=== PATIENT | male | born 1965 | race Caucasian/White ===

== ENCOUNTER 2020-09-01 18:51 | Observation (INO) ==
[2020-09-01 19:18] LABS: Basophils # 0.1 K/mcL (0.0-0.2); Basophils % 0.4 %; Eosinophils # 0.3 K/mcL (0.0-0.6); Eosinophils % 2.5 %; Hematocrit 42.4 % (37.5-50.1); Immature Granulocytes % 0.2 % (0-4); Lymphocytes # 3.8 K/mcL (0.6-4.6); Lymphocytes % 29.7 %; Mean Corpuscular Hemoglobin 32.6 pg (28.0-33.3); Mean Corpuscular Volume 98.6 fL (83.0-100.0); Mean Platelet Volume 10.2 fL (9.4-12.4); Monocytes # 0.8 K/mcL (0.0-1.3); Monocytes % 6.2 %; Neutrophils # 7.9 K/mcL (1.6-8.9); Platelet Count 230 K/mcL (140-400); Red Cell Distribution Width 13.3 % (11.5-14.5); White Blood Count 12.9 K/mcL (4.3-11.1)
[2020-09-01 19:36] LABS: Alanine Aminotransferase 27 Units/L (7-52); Albumin 4.3 g/dL (3.5-5.7); Albumin/Globulin Ratio 1.5 (1.1-2.2); Alkaline Phosphatase 99 Units/L (34-104); Aspartate Amino Transferase 20 Units/L (13-39); BUN/Creatinine Ratio 22 (6-26); Bilirubin,Total 0.2 mg/dL (0.3-1.0); Blood Urea Nitrogen 18 mg/dL (6-20); Calcium 9.6 mg/dL (8.6-10.3); Carbon Dioxide 27 mEq/L (23-29); Chloride 103 mEq/L (98-107); Globulin 2.8 g/dL (2.4-3.5); Glucose 98 mg/dL (70-105); Lipase 27 Units/L (11-82); Osmolality,Calculated 286 (280-300); Sodium 137 mEq/L (136-145); Total Protein 7.1 g/dL (6.4-8.9); eGFR For African Americans > 60 (> 60); eGFR For Non-African Americans > 60 (> 60)
[2020-09-01 20:18] LABS: Troponin I < 0.03 ng/mL (< 0.04)
[2020-09-01] MEDS ORDERED: Isovue-370 500 ML BOTTLE IVP ONE (20:32)
[2020-09-01] MEDS ORDERED: Pantoprazole 40 MG VIAL IVP ONE (21:39)
[2020-09-01] MEDS ORDERED: Nicotine 14 MG PATCH.TD24 TD STA (21:56)
[2020-09-01] MEDS ORDERED: Melatonin 3 MG TABLET PO PRN (23:01)
[2020-09-01] MEDS ORDERED: Naloxone 0.4 MG/ML INJ IVP PRN (23:01)
[2020-09-01] MEDS ORDERED: Ondansetron 4 MG/2 ML VIAL IVP PRN (23:01)
[2020-09-02] MEDS ORDERED: 0.9 % Sodium Chloride 1,000 ML IVC ONE (05:34)
[2020-09-02] MEDS ORDERED: Pantoprazole 40 MG VIAL IVP SCH (06:00)
[2020-09-02] MEDS ORDERED: *HR* Heparin 5,000 UNIT/ML VIAL SQ SCH (06:00)
[2020-09-02 07:10] LABS: Basophils # 0.1 K/mcL (0.0-0.2); Basophils % 0.5 %; Eosinophils # 0.3 K/mcL (0.0-0.6); Eosinophils % 2.4 %; Hematocrit 41.6 % (37.5-50.1); Hemoglobin 13.8 g/dL (12.9-16.9); Immature Granulocytes % 0.2 % (0-4); Lymphocytes # 3.7 K/mcL (0.6-4.6); Lymphocytes % 35.3 %; Mean Corpuscular HGB Conc 33.2 g/dL (31.6-35.5); Mean Corpuscular Volume 96.5 fL (83.0-100.0); Mean Platelet Volume 10.3 fL (9.4-12.4); Monocytes # 0.6 K/mcL (0.0-1.3); Monocytes % 5.8 %; Neutrophils # 5.8 K/mcL (1.6-8.9); Platelet Count 195 K/mcL (140-400); Red Blood Count 4.31 M/mcL (4.19-5.50); Red Cell Distribution Width 13.2 % (11.5-14.5); Segmented Neutrophils % 55.8 %; White Blood Count 10.5 K/mcL (4.3-11.1)
[2020-09-02 07:49] LABS: BUN/Creatinine Ratio 18 (6-26); Blood Urea Nitrogen 15 mg/dL (6-20); Calcium 9.4 mg/dL (8.6-10.3); Carbon Dioxide 26 mEq/L (23-29); Chloride 106 mEq/L (98-107); Glucose 93 mg/dL (70-105); Osmolality,Calculated 287 (280-300); Potassium 3.8 mEq/L (3.5-5.1); Sodium 138 mEq/L (136-145); eGFR For African Americans > 60 (> 60); eGFR For Non-African Americans > 60 (> 60)
[2020-09-02] MEDS ORDERED: Aspirin Enteric Coated 81 MG Tablet PO SCH (09:00)
[2020-09-02 10:22] LABS: Adenovirus Not Detected (Not Detect); Bordetella Pertussis Not Detected (Not Detect); Chlamydophila pneumoniae Not Detected (Not Detect); Coronavirus 229E Not Detected (Not Detect); Coronavirus HKU1 Not Detected (Not Detect); Coronavirus NL63 Not Detected (Not Detect); Coronavirus OC43 Not Detected (Not Detect); Human Metapneumovirus Not Detected (Not Detect); Human Rhinovirus/Enterovirus Not Detected (Not Detect); Influenza A Subtype 2009 H1 Not Detected (Not Detect); Influenza B Not Detected (Not Detect); Mycoplasma pneumoniae Not Detected (Not Detect); Parainfluenza Virus 1 Not Detected (Not Detect); Parainfluenza Virus 2 Not Detected (Not Detect); Parainfluenza Virus 3 Not Detected (Not Detect); Parainfluenza Virus 4 Not Detected (Not Detect); Respiratory Syncytial Virus Not Detected (Not Detect); SARS-CoV-2 Not Detected (Not Detect)
[2020-09-02] MEDS ORDERED: Nitroglycerin 0.4 MG TAB.SUBL SL PRN (10:29)
[2020-09-02] MEDS ORDERED: Isosorbide MONOnitrate (24 HR) 30 MG TAB.ER.24H PO SCH (10:30)
[2020-09-02] MEDS ORDERED: Metoprolol XL (24 HR) Succ 25 MG TAB.ER.24H PO SCH (10:30)
[2020-09-02] MEDS ORDERED: lisinopriL 5 MG TABLET PO SCH (10:45)
[2020-09-02] MEDS ORDERED: *HR* Propofol 200 MG/20 ML VIAL IVP ONE (11:27)
[2020-09-02] MEDS ORDERED: Lidocaine -MPF 2% 2 ML VIAL ONE (11:28)
[2020-09-02 14:43] VITALS: BP 100/52
[2020-09-02] MEDS ORDERED: Perflutren Lipid Microsphere 1.3 ML in 0.9 % Sodium Chloride 8.7 ML IVP PRN (16:10)
[2020-09-02] MEDS ORDERED: Melatonin 3 MG TABLET PO SCH (21:00)
== END 2020-09-02 17:04 | disposition home or self-care (01) ==
LOC: 3BNU 18:51 → EMEROOARM 18:51 → SUATTDRO 21:49 → 3BNU 22:19
PROVIDERS: ADMIT Family Medicine; ATTEND Registered Nurse
PROC: ENDOEBX (2020-09-02 13:30)

== ENCOUNTER 2020-10-27 23:31 | Observation (INO) ==
[2020-10-28 00:43] LABS: Basophils # 0.1 K/mcL (0.0-0.2); Basophils % 0.4 %; Eosinophils # 0.3 K/mcL (0.0-0.6); Eosinophils % 2.9 %; Hematocrit 41.1 % (37.5-50.1); Hemoglobin 13.4 g/dL (12.9-16.9); Immature Granulocytes % 0.3 % (0-4); Lymphocytes # 3.4 K/mcL (0.6-4.6); Lymphocytes % 29.7 %; Mean Corpuscular HGB Conc 32.6 g/dL (31.6-35.5); Mean Corpuscular Hemoglobin 32.3 pg (28.0-33.3); Mean Platelet Volume 10.6 fL (9.4-12.4); Monocytes # 0.9 K/mcL (0.0-1.3); Neutrophils # 6.7 K/mcL (1.6-8.9); Platelet Count 216 K/mcL (140-400); Red Blood Count 4.15 M/mcL (4.19-5.50); Red Cell Distribution Width 12.7 % (11.5-14.5); Segmented Neutrophils % 58.7 %; White Blood Count 11.4 K/mcL (4.3-11.1)
[2020-10-28 00:54] LABS: Prothrombin Time 11.3 Seconds (9.4-12.1)
[2020-10-28 00:59] LABS: Alanine Aminotransferase 20 Units/L (7-52); Albumin 4.3 g/dL (3.5-5.7); Albumin/Globulin Ratio 1.5 (1.1-2.2); Alkaline Phosphatase 94 Units/L (34-104); Aspartate Amino Transferase 17 Units/L (13-39); BUN/Creatinine Ratio 25 (6-26); Bilirubin,Indirect 0.3 mg/dL (0.0-1.0); Bilirubin,Total 0.3 mg/dL (0.3-1.0); Blood Urea Nitrogen 21 mg/dL (6-20); Calcium 9.8 mg/dL (8.6-10.3); Carbon Dioxide 25 mEq/L (23-29); Chloride 104 mEq/L (98-107); Globulin 2.8 g/dL (2.4-3.5); Glucose 107 mg/dL (70-105); Osmolality,Calculated 287 (280-300); Potassium 3.9 mEq/L (3.5-5.1); Sodium 137 mEq/L (136-145); Total Protein 7.1 g/dL (6.4-8.9); eGFR For African Americans > 60 (> 60); eGFR For Non-African Americans > 60 (> 60)
[2020-10-28] MEDS ORDERED: Isovue-370 500 ML BOTTLE IVP ONE (01:35)
[2020-10-28] MEDS ORDERED: Ondansetron 4 MG/2 ML VIAL IVP PRN (05:01)
[2020-10-28] MEDS ORDERED: Acetaminophen 325 MG TABLET PO PRN (05:01)
[2020-10-28] MEDS ORDERED: Naloxone 0.4 MG/ML INJ IVP PRN (05:01)
[2020-10-28] MEDS ORDERED: Nitroglycerin 0.4 MG TAB.SUBL SL PRN (05:02)
[2020-10-28] MEDS ORDERED: Nicotine 14 MG PATCH.TD24 TD SCH (05:30)
[2020-10-28] MEDS: Aspirin Enteric Coated 81 MG Tablet PO SCH (08:11)
[2020-10-28] MEDS: Amoxicillin 500 MG CAPSULE PO SCH (08:11)
[2020-10-28] MEDS: Isosorbide MONOnitrate (24 HR) 30 MG TAB.ER.24H PO SCH (08:11)
[2020-10-28] MEDS: Metoprolol XL (24 HR) Succ 25 MG TAB.ER.24H PO SCH (08:11)
[2020-10-28] MEDS: lisinopriL 5 MG TABLET PO SCH (08:11)
[2020-10-28 10:07] LABS: Hemoglobin 14.1 g/dL (12.9-16.9)
[2020-10-28] MEDS ORDERED: Melatonin 3 MG TABLET PO SCH (21:00)
[2020-10-29] MEDS: Amoxicillin 500 MG CAPSULE PO SCH (00:29)
[2020-10-29 05:22] LABS: Basophils # 0.1 K/mcL (0.0-0.2); Basophils % 0.6 %; Eosinophils # 0.4 K/mcL (0.0-0.6); Eosinophils % 3.9 %; Hematocrit 43.8 % (37.5-50.1); Hemoglobin 14.2 g/dL (12.9-16.9); Immature Granulocytes % 0.3 % (0-4); Lymphocytes # 3.4 K/mcL (0.6-4.6); Lymphocytes % 31.5 %; Mean Corpuscular HGB Conc 32.4 g/dL (31.6-35.5); Mean Corpuscular Hemoglobin 31.7 pg (28.0-33.3); Mean Corpuscular Volume 97.8 fL (83.0-100.0); Mean Platelet Volume 10.5 fL (9.4-12.4); Monocytes # 0.8 K/mcL (0.0-1.3); Monocytes % 7.3 %; Neutrophils # 6.1 K/mcL (1.6-8.9); Platelet Count 217 K/mcL (140-400); Red Blood Count 4.48 M/mcL (4.19-5.50); Segmented Neutrophils % 56.4 %; White Blood Count 10.7 K/mcL (4.3-11.1)
[2020-10-29 05:30] LABS: INR 1.1; Prothrombin Time 12.4 Seconds (9.4-12.1)
[2020-10-29 05:44] LABS: BUN/Creatinine Ratio 24 (6-26); Blood Urea Nitrogen 19 mg/dL (6-20); Calcium 9.5 mg/dL (8.6-10.3); Carbon Dioxide 22 mEq/L (23-29); Chloride 106 mEq/L (98-107); Glucose 98 mg/dL (70-105); Osmolality,Calculated 284 (280-300); Potassium 4.1 mEq/L (3.5-5.1); Sodium 136 mEq/L (136-145); eGFR For African Americans > 60 (> 60); eGFR For Non-African Americans > 60 (> 60)
[2020-10-29 06:46] VITALS: BP 121/76
[2020-10-29] MEDS: Metoprolol XL (24 HR) Succ 25 MG TAB.ER.24H PO SCH (09:07)
[2020-10-29] MEDS: Aspirin Enteric Coated 81 MG Tablet PO SCH (09:07)
[2020-10-29] MEDS: Isosorbide MONOnitrate (24 HR) 30 MG TAB.ER.24H PO SCH (09:07)
[2020-10-29] MEDS: lisinopriL 5 MG TABLET PO SCH (09:08)
== END 2020-10-29 09:32 | disposition home or self-care (01) ==
LOC: EMEROOARM 23:31 → 3NENU 23:31 → SUATTDRO 10-28 03:48 → 3NENU 10-28 04:19
PROVIDERS: ADMIT Family Medicine; ATTEND Internal Medicine